=== PATIENT | male | born 1995 ===

== ENCOUNTER 2022-06-04 05:54 | Emergency (ER) | payer BC, MEDICAID ==
[2022-06-04] MEDS ORDERED: traMADol 50 MG Tab PO ONE (06:18)
[2022-06-04] MEDS ORDERED: Ibuprofen 600 MG Tab PO ONE (06:18)
[2022-06-04] MEDS ORDERED: Cephalexin 500 MG Cap PO ONE (06:18)
== END 2022-06-04 06:35 | disposition home or self-care (01) ==
LOC: MW.ED 05:54
DX: K04.7 Periapical abscess without sinus (principal)
CPT/HCPCS: 99282; A9270